=== PATIENT | male | born 1955 | race Hispanic/Latino ===

== ENCOUNTER 2017-09-22 08:53 | Inpatient (IN) | payer BC ==
[~2017-09-22] VITALS: Ht 175.3 cm; Wt 127.0 kg
[2017-09-22] VITALS (22 sets, daily range): BP systolic 86–131; BP diastolic 51–92
[~2017-09-22 08:53] MED LIST: ONDA4TAB10 PO; TRAM50TA4 PO
[2017-09-22] MEDS ORDERED: SODIUM CHLORIDE 0.9% 1000ML 1,000 ML IV ONE ×2 (09:10→14:01)
[2017-09-22 09:21] LABS: BASOPHILS % (AUTO) 1.9 % (0.0-5.0); HEMATOCRIT 42.1 % (42-54); LYMPHOCYTES % (AUTO) 2.3 % (21.0-51.0); MEAN CORPUSCULAR HEMOGLOBIN 35.4 pg (27.0-33.0); MONOCYTES % (AUTO) 2.8 % (3.0-13.0); PLATELET COUNT (AUTO) 214 K/uL (130-400); RED BLOOD CELL COUNT(AUTO) 4.05 MIL/uL (4.50-6.20); RED CELL DISTRIBUTION WIDTH 14.5 % (11.0-15.5); WHITE BLOOD COUNT (AUTO) 14.5 K/uL (4.8-10.8)
[2017-09-22 09:40] LABS: CREATININE 1.9 mg/dL (0.5-1.5)
[2017-09-22 09:45] LABS: ALBUMIN 2.5 g/dL (3.5-5.0); BILIRUBIN,TOTAL 2.7 mg/dL (0.2-1.0); TOTAL PROTEIN, SERUM 6.7 g/dL (6.0-8.3)
[2017-09-22] MEDS ORDERED: ZOSYN 3.375GM+NS 50ML 50 ML IV ONE (10:02)
[2017-09-22] MEDS ORDERED: ONDANSETRON HCL MDV 20ML 2 MG/ML VIAL ONE ×2 (10:11→16:21)
[2017-09-22] MEDS ORDERED: HYDROMORPHONE 1 MG/1 ML AMP ONE (10:11)
[2017-09-22] MEDS ORDERED: SODIUM CHLORIDE 0.9% 1000ML 2,000 ML IV ONE (10:22)
[2017-09-22 10:29] LABS: INR 1.36 (0.85-1.15); PARTIAL THROMBOPLASTIN TIME 31.7 SEC (26.3-35.5); PROTHROMBIN TIME 14.2 SEC (9.6-11.6)
[2017-09-22] MEDS ORDERED: FLUCONAZOLE 400 MG/NS 200 ML 200 ML IV SCH (10:45)
[2017-09-22 11:02] LABS: APPEARANCE,URINE CLEAR (CLEAR); BILIRUBIN,URINE MODERATE (NEGATIVE); COLOR,URINE YELLOW (YELLOW); GLUCOSE, URINE (UA) NEGATIVE (NEGATIVE); KETONES,URINE 15 mg/dL (NEGATIVE); LEUKOCYTE ESTERASE ,URINE TRACE (NEGATIVE); NITRATE,URINE NEGATIVE (NEGATIVE); OCCULT BLOOD,URINE NEGATIVE (NEGATIVE); PROTEIN,URINE 30 (NEGATIVE)
[2017-09-22] MEDS ORDERED: DEXTROSE 5 % AND 0.9 % NACL 1,000 ML IV ONE (11:02)
[2017-09-22 11:23] LABS: BACTERIA,URINE Rare /HPF (None Seen); MUCUS,URINE Many LPF (None Seen); SQUAMOUS EPITHELIAL CELL,UR Rare /HPF (0-2)
[2017-09-22 11:37] LABS: CREATINE KINASE MB 1.8 ng/mL (0.5-3.6); MYOGLOBIN 1846 ng/mL (10-92); TROPONIN I < 0.04 ng/mL (0.00-0.06)
[2017-09-22 11:40] LABS: CREATINE KINASE, TOTAL 545 U/L (21-232)
[2017-09-22] MEDS ORDERED: ONDANSETRON HCL MDV 20ML 2 MG/ML VIAL IVP PRN ×2 (12:15→17:00)
[2017-09-22] MEDS ORDERED: MORPHINE SULFATE 4 MG/1ML SYG IVP PRN (12:15)
[2017-09-22] MEDS: DEXTROSE 5 % AND 0.9 % NACL 1,000 ML IV SCH ×2 (12:17→18:55)
[2017-09-22] MEDS ORDERED: LISI-613 PO (12:24)
[2017-09-22] MEDS ORDERED: GLYCOPYRROLATE 0.2 MG/ML 5 ML VIAL ONE (14:30)
[2017-09-22] MEDS ORDERED: ROCURONIUM BROMIDE 10MG/1ML 5ML VL ONE ×2 (14:31→16:22)
[2017-09-22] MEDS ORDERED: PROPOFOL 10 MG/ML 20ML VIAL IV ONE (14:31)
[2017-09-22] MEDS ORDERED: SUCCINYLCHOLINE 200MG/10ML SYR ONE (14:31)
[2017-09-22] MEDS ORDERED: MIDAZOLAM HCL 1 MG/ML 2ML VIAL ONE (14:31)
[2017-09-22] MEDS ORDERED: FENTANYL CITRATE PF 50 MCG/1 ML 5ML AMP IV ONE (14:38)
[2017-09-22] MEDS ORDERED: NOREPINEPHRINE BITARTRATE 1 MG/1 ML ML IV ONE (15:02)
[2017-09-22] MEDS ORDERED: ALBUMIN (HUMAN) 5% 250 ML IV ONE (15:10)
[2017-09-22] MEDS ORDERED: VASOPRESSIN 20 UNITS/ML 1ML VIAL ONE ×2 (15:41→22:05)
[2017-09-22] MEDS ORDERED: PHENYLEPHRINE HCL 10 MG/ML 1ML VIAL IV ONE (16:21)
[2017-09-22] MEDS: INSULIN R PO SS1 SQ SCH ×2 (16:30→21:00)
[2017-09-22] MEDS ORDERED: SODIUM BICARB 8.4% 50ML SYRINGE ONE (16:50)
[2017-09-22] MEDS: SODIUM CHLORIDE 0.9% 1000ML 1,000 ML IV SCH ×2 (16:55→17:20)
[2017-09-22 17:46] LABS: HEMATOCRIT 35.4 % (42-54); MEAN CORPUSCULAR HEMOGLOBIN 36.5 pg (27.0-33.0); MEAN CORPUSCULAR HGB CONC 34.7 g/dL (32.0-36.0); MEAN CORPUSCULAR VOLUME 105.1 fL (79-99); NUCLEATED RED BLOOD CELLS 0.1 % (0.0-0.19); PLATELET COUNT (AUTO) 143 K/uL (130-400); RED BLOOD CELL COUNT(AUTO) 3.37 MIL/uL (4.50-6.20); RED CELL DISTRIBUTION WIDTH 14.7 % (11.0-15.5); WHITE BLOOD COUNT (AUTO) 6.9 K/uL (4.8-10.8)
[2017-09-22 18:02] LABS: CREATININE 1.2 mg/dL (0.5-1.5); POTASSIUM 4.7 mmol/L (3.5-5.1)
[2017-09-22 18:31] LABS: ABG BASE EXCESS -17.5 mmol/L (-2.0-3.0); ABG HCO3 11.7 mmol/L (21.0-28.0); ABG OXYGEN SATURATION 94.1 % (95.0-99.0); ABG PCO2 40 mmHg (35-48)
[2017-09-22] MEDS: ZOSYN 3.375GM+NS 50ML 50 ML IV SCH ×2 (18:36→21:40)
[2017-09-22] MEDS ORDERED: SODIUM BICARB 8.4% 50ML SYRINGE IVP ONE ×3 (19:30→21:30)
[2017-09-22] MEDS ORDERED: PROPOFOL 1000 MG/100 ML IV PRN (19:30)
[2017-09-22] MEDS ORDERED: SODIUM BICARB 50MEQ 50ML VIAL ONE ×2 (19:31→21:15)
[2017-09-22] MEDS: FENTANYL 2500MCG+NS 250ML 250 ML IV PRN (19:58)
[2017-09-22] MEDS: SODIUM BICARB 8.4% 50ML SYRING 150 MEQ in DEXTROSE 5%-WATER 1,000 ML IV SCH (21:19)
[2017-09-22] MEDS: NOREPINEPHRINE 4MG/NS 250ML 250 ML IV PRN (21:21)
[2017-09-22] MEDS ORDERED: MIDAZOLAM 100MG-0.9% NS 100ML 100 ML IV PRN (21:30)
[2017-09-22] MEDS ORDERED: SODIUM CHLORIDE 0.9% 250 ML IV ONE (22:05)
[2017-09-22] MEDS ORDERED: VASOPRESSIN 125 UNITS in SODIUM CHLORIDE 0.9% 250 ML IV PRN (23:15)
[2017-09-23] VITALS (73 sets, daily range): BP systolic 55–110; BP diastolic 31–84
[2017-09-23] MEDS: METRONIDAZOLE 500MG/100ML BAG 100 ML IV SCH ×3 (00:44→14:09)
[2017-09-23] MEDS: DEXTROSE 5 % AND 0.9 % NACL 1,000 ML IV SCH ×3 (01:35→14:11)
[2017-09-23] MEDS: NOREPINEPHRINE 4MG/NS 250ML 250 ML IV PRN ×5 (02:46→18:33)
[2017-09-23 04:22] LABS: ABG BASE EXCESS -7.5 mmol/L (-2.0-3.0); ABG HCO3 18.2 mmol/L (21.0-28.0); ABG PCO2 38 mmHg (35-48)
[2017-09-23 04:44] LABS: MEAN CORPUSCULAR HEMOGLOBIN 35.4 pg (27.0-33.0); MEAN CORPUSCULAR HGB CONC 33.9 g/dL (32.0-36.0); MEAN CORPUSCULAR VOLUME 104.4 fL (79-99); PLATELET COUNT (AUTO) 159 K/uL (130-400); RED BLOOD CELL COUNT(AUTO) 3.83 MIL/uL (4.50-6.20); RED CELL DISTRIBUTION WIDTH 14.9 % (11.0-15.5); WHITE BLOOD COUNT (AUTO) 9.7 K/uL (4.8-10.8)
[2017-09-23 04:59] LABS: BAND NEUTROPHILS % (MANUAL) 53 % (0-2); LYMPHOCYTES % (MANUAL) 1 % (22-44); MAN.DIFF COMMENT-IMPRESSION MANUAL DIFFERENTIAL; METAMYELOCYTES % 12 % (0-0); MONOCYTES % (MANUAL) 15 % (2-9); MYELOCYTES % 8 % (0-0); REACTIVE LYMPHOCYTES 1 % (0-0); SEGMENTED NEUTROPHILS % 10 % (40-70)
[2017-09-23 05:00] LABS: PLATELET MORPHOLOGY COMMENT ADEQUATE
[2017-09-23 05:10] LABS: CREATININE 1.7 mg/dL (0.5-1.5); MAGNESIUM 1.5 mg/dL (1.80-2.40); POTASSIUM 5.6 mmol/L (3.5-5.1)
[2017-09-23] MEDS: SODIUM CHLORIDE 0.9% 1000ML 1,000 ML IV SCH (06:15)
[2017-09-23] MEDS: ZOSYN 3.375GM+NS 50ML 50 ML IV SCH ×2 (06:33→12:28)
[2017-09-23] MEDS ORDERED: HYDROCORTISONE SOD SUCCINATE 100 MG/2 ML VIAL IV SCH (06:45)
[2017-09-23] MEDS ORDERED: ALBUMIN (HUMAN) 5% 500 ML IV SCH (06:45)
[2017-09-23] MEDS: INSULIN R PO SS1 SQ SCH ×3 (06:57→16:30)
[2017-09-23] MEDS: PHENYLEPHRINE HCL 50 MG in SODIUM CHLORIDE 0.9% 250 ML IV PRN ×2 (07:54→18:38)
[2017-09-23] MEDS ORDERED: THIAMINE HCL 100 MG/ML 2ML VIAL IM SCH ×2 (08:30→20:30)
[2017-09-23] MEDS ORDERED: FLUCONAZOLE 400 MG/NS 200 ML 200 ML IV SCH (09:00)
[2017-09-23] MEDS ORDERED: FAMOTIDINE/PF 20 MG/2 ML VIAL IV SCH (09:00)
[2017-09-23] MEDS ORDERED: CHLORHEXIDINE GLUCONATE 473 ML MOUTHWASH MM SCH (09:00)
[2017-09-23] MEDS: HYDROCORTISONE SOD SUCCINATE 100 MG/2 ML VIAL IV SCH ×2 (12:28→18:20)
[2017-09-23] MEDS: SODIUM BICARB 8.4% 50ML SYRING 150 MEQ in DEXTROSE 5%-WATER 1,000 ML IV SCH (14:10)
[2017-09-23] MEDS: FENTANYL 2500MCG+NS 250ML 250 ML IV PRN (16:02)
[2017-09-23] MEDS ORDERED: MORPHINE SULFATE 4 MG/1ML SYG IVP PRN (18:45)
[2017-09-23] MEDS ORDERED: LORAZEPAM 2 MG/ML 1 ML VIAL IVP PRN (18:45)
== END 2017-09-23 23:19 | disposition expired | DRG 853 ==
LOC: EDH 08:53 → EDHIP 10:30 → 2BH 11:52
PROVIDERS: ADMIT Internal Medicine Infectious Disease; ATTEND Internal Medicine Infectious Disease
PROC: 0BH17EZ Insertion of Endotracheal Airway into Trachea, Via Natural or Artificial Opening (ICD-10-PCS; principal; 2017-09-23)
PROC: 0DTJ0ZZ Resection of Appendix, Open Approach (ICD-10-PCS; 2017-09-23)
PROC: 0DB80ZZ Excision of Small Intestine, Open Approach (ICD-10-PCS; 2017-09-23)
PROC: 0WBF0ZZ Excision of Abdominal Wall, Open Approach (ICD-10-PCS; 2017-09-23)
PROC: 5A1945Z Respiratory Ventilation, 24-96 Consecutive Hours (ICD-10-PCS; 2017-09-23)
DX: A41.9 Sepsis, unspecified organism (principal); K35.2 Acute appendicitis with generalized peritonitis; J96.90 Respiratory failure, unspecified, unspecified whether with hypoxia or hypercapnia; M72.6 Necrotizing fasciitis; R65.21 Severe sepsis with septic shock; E87.2 Acidosis; N17.9 Acute kidney failure, unspecified; Z68.41 Body mass index [BMI] 40.0-44.9, adult; E66.01 Morbid (severe) obesity due to excess calories; I10 Essential (primary) hypertension; K66.0 Peritoneal adhesions (postprocedural) (postinfection); Z51.5 Encounter for palliative care; Z87.891 Personal history of nicotine dependence
CPT/HCPCS: 36415; 71045; 74176; 80048; 80053; 81001; 82330; 82435; 82550; 82553; 82803; 82947; 82948; 83605; 83735; 83874; 84132; 84295; 84484; 85018; 85025; 85027; 85610; 85730; 87040; 87088; 87186; 88304; 88307; 93005; 94002; 94003; 99291; A4344; C1751; C9113; J0330; J1170; J1450; J1720; J1815; J2060; J2250; J2270; J2370; J2543; J2704; J3010; J3411; J3490; J7030; J7042; J7070; J7120; P9045